=== PATIENT | female | born 2000 | race American Indian/Alaskan Native ===

== ENCOUNTER 2022-03-05 08:56 | Emergency (ER) | payer MEDICAID ==
[2022-03-05 10:57] LABS: Basophils % (Auto) 0.1 % (0.0-1.8); Eosinophils # (Auto) 0.1 K/mm3 (0.0-0.4); Eosinophils % (Auto) 0.7 % (0.0-4.3); Hematocrit 36.3 % (30.3-42.9); Lymphocytes # (Auto) 1.6 K/mm3 (1.2-5.4); Lymphocytes % (Auto) 16.1 % (13.4-35.0); Mean Corpuscular HGB Conc 33 % (30-34); Mean Corpuscular Volume 79 fl (79-97); Monocytes # (Auto) 0.6 K/mm3 (0.0-0.8); Monocytes % (Auto) 6.1 % (0.0-7.3); Platelet Count 400 K/mm3 (140-440); Red Cell Distribution Width 16.9 % (13.2-15.2)
--- NOTE | 2022-03-05 12:51 | Ultrasound Report ---
FIRSTTRIMESTER OBSTETRIC ULTRASOUND HISTORY: Abdominal pain during , vaginal bleeding COMPARISON: None. TECHNIQUE: Routine transabdominal OB ultrasound performed. FINDINGS: Uterus: Mildly enlarged measuring 13.1 x 9.2 x 9.8 cm. Gestational Sac: Well-defined oval shape and intrauterine in location. Yolk Sac: Not seen Fetus/Embryo: Green-rump length of 6.57 cm, corresponding to an estimated gestational age of 12 weeks 6 days. Embryonic/ anatomy is too small for evaluation. Embryonic/ cardiac activity: 153bpm Placenta: Too small for evaluation. Amniotic fluid volume: Subjectively appropriate for gestational age. Ovaries: The right ovary is normal in size and appearance with normal blood flow, measuring 2.5 x 1. 6 x 2.0 cm. The left ovary is normal in size and appearance with normal blood flow, measuring 3.8 x 1.4 x 3.2 cm. Additional findings: Small subchorionic hemorrhages are identified on both sides of the gestational s ac. These measure approximately 5 mm in thickness. IMPRESSION Early live intrauterine . Small subchorionic hemorrhages as described. Signer Name: Marco Mae Jr, MD Signed: 03/05/2022 12:43 PM Workstation Name: [id number]
[2022-03-05 13:20] LABS: Blood Urea Nitrogen 5 mg/dL (7-17); Calcium 9.2 mg/dL (8.4-10.2); Hemolysis Index 0
[2022-03-05 13:21] LABS: BUN/Creatinine Ratio 8
[2022-03-05 14:17] LABS: Bacteria,Urine 1+ /HPF (Negative); Bilirubin,Urine NEG (Negative); Blood,Urine NEG (Negative); Color,Urine Yellow (Yellow); Mucus,Urine FEW /HPF; Protein,Urine <15 mg/dL mg/dL (Negative); WBC,Urine < 1.0 /HPF (0.0-6.0)
--- NOTE | 2022-03-05 14:31 | Emergency Department Report ---
ED HPI - General Chief complaint: Vaginal Bleeding Stated complaint: UNK WRK /BLEEDING Time Seen by Provider: 03/05/22 11:33 Source: patient Mode of arrival: Ambulatory Limitations: No Limitations - History of Present Illness Initial comments: 21 yo black female with no pmh presents to the ed for evaluation abdominal pain and vaginal bleeding. She states that she had a positive tests several weeks ago. She states that pain and bleeding started today, and she denies fever, n/v, dysuria, and dizziness. MD Complaint: abdominal pain, vaginal bleeding -: Sudden, This morning Location: abdomen Radiation: LLQ, RLQ, suprapubic Severity: moderate Severity scale (0 -10): 5 Quality: aching Consistency: intermittent Associated symptoms: vaginal bleeding, abdominal pain. denies: nausea/vomiting, vaginal discharge, dysuria, headache, vision changes, malaise, dysparuenia, rash, seizure, shortness of breath, syncope, weakness Vaginal bleeding: light :: Yes Pre- care: followed by OB - Related Data : 1 Para: 0 Previous Rx's Medication Instructions Recorded Last Taken Type cephALEXin [Keflex] 500 mg PO BID #14 cap 03/05/22 Unknown Rx Allergies Allergy/AdvReac Type Severity Reaction Status Date / Time No Known Allergies Allergy Verified 03/05/22 09:52 ED Review of Systems ROS: Stated complaint: UNK WRK /BLEEDING Other details as noted in HPI Comment: All other systems reviewed and negative Constitutional: denies: chills, fever ENT: denies: congestion Respiratory: denies: shortness of breath Cardiovascular: denies: chest pain, palpitations, dyspnea on exertion, orthopnea, edema, syncope, paroxysmal nocturnal dyspnea Gastrointestinal: abdominal pain. denies: nausea, vomiting, diarrhea, hematemesis, melena, hematochezia Genitourinary: denies: urgency, dysuria, frequency, hematuria, discharge Musculoskeletal: denies: back pain Neurological: denies: headache, weakness ED Past Medical Hx - Social History Smoking Status: Never Smoker Substance Use Type: None - Medications Home Medications: Home Medications Medication Instructions Recorded Confirmed Last Taken Type cephALEXin [Keflex] 500 mg PO BID #14 cap 03/05/22 Unknown Rx ED Physical Exam - General Limitations: No Limitations General appearance: alert, in no apparent distress - Head Head exam: Present: atraumatic, normocephalic - Eye Eye exam: Present: normal appearance. Absent: conjunctival injection - Neck Neck exam: Present: normal inspection, full ROM. Absent: tenderness - Respiratory Respiratory exam: Present: normal lung sounds bilaterally. Absent: respiratory distress, wheezes, rales, rhonchi, stridor, chest wall tenderness - Cardiovascular Cardiovascular Exam: Present: regular rate, normal heart sounds - GI/Abdominal GI/Abdominal exam: Present: soft, normal bowel sounds. Absent: distended, tenderness, guarding, rebound, rigid - Extremities Exam Extremities exam: Present: normal inspection, full ROM, normal capillary refill. Absent: tenderness, pedal edema, joint swelling, calf tenderness - Back Exam Back exam: Present: normal inspection. Absent: CVA tenderness (R), CVA tenderness (L), vertebral tenderness - Neurological Exam Neurological exam: Present: alert, oriented X3 - Psychiatric Psychiatric exam: Present: normal affect, normal mood - Skin Skin exam: Present: warm, dry, intact, normal color ED Course Vital Signs 03/05/22 03/05/22 03/05/22 09:54 11:40 14:54 Temperature 98.8 F 98.8 F 98.2 F Pulse Rate 86 79 97 H Respiratory 16 20 20 Rate Blood Pressure 145/85 124/78 145/97 [Left] O2 Sat by Pulse 100 100 100 Oximetry ED Medical Decision Making - Lab Data Result diagrams: 03/05/22 10:17 03/05/22 10:17 - Radiology Data Radiology results: report reviewed US: FINDINGS: Uterus: Mildly enlarged measuring 13.1 x 9.2 x 9.8 cm. Gestational Sac: Well-defined oval shape and intrauterine in location. Yolk Sac: Not seen Fetus/Embryo: [place]-rump length of 6.57 cm, corresponding to an estimated gestational age of 12 weeks 6 days. Embryonic/ anatomy is too small for evaluation. Embryonic/ cardiac activity: 153bpm Placenta: Too small for evaluation. Amniotic fluid volume: Subjectively appropriate for gestational age. Ovaries: The right ovary is normal in size and appearance with normal blood flow, measuring 2.5 x 1.6 x 2.0 cm. The left ovary is normal in size and appearance with normal blood flow, measuring 3.8 x 1.4 x 3.2 cm. Additional findings: Small subchorionic hemorrhages are identified on both sides of the gestational sac. These measure approximately 5 mm in thickness. IMPRESSION Early live intrauterine . Small subchorionic hemorrhages as described. - Medical Decision Making 21 yo black female with no pmh presents to the ed for evaluation abdominal pain and vaginal bleeding. She states that she had a positive tests several weeks ago. She states that pain and bleeding started today, and she denies fever, n/v, dysuria, and dizziness. No gross abnormalities noted to labs, urine positive for uti, and US positive for IUP at 12 weeks and subchorionic hemorrhage. She will be treated with 7 day coarse of Keflex for UTI and advised to follow up with copier and printer field technician as planned for care. She is advised to return to ed if worsening bleeding or any other concerning symptoms. She verbalized understanding of and agreement with plan of care. Critical care attestation.: If time is entered above; I have spent that time in minutes in the direct care of this critically ill patient, excluding procedure time. ED Disposition Clinical Impression: Subchorionic hematoma Qualifiers: Fetus number: single or unspecified fetus Trimester: first trimester Qualified Code(s): O41.8X10 - Other specified disorders of amniotic fluid and membranes, first trimester, not applicable or unspecified UTI (urinary tract infection) Qualifiers: Urinary tract infection type: acute cystitis Hematuria presence: without hematuria Qualified Code(s): N30.00 - Acute cystitis without hematuria Disposition: 01 HOME / SELF CARE / HOMELESS Is pt being admited?: No Does the pt Need Aspirin: No Condition: Stable Instructions: Antibiotic Medicine, Adult, [id number], Urinary Tract Infection, Adult, [id number], Subchorionic Hematoma Additional Instructions: Take medication as prescribed. Follow-up with RECREATIONAL THERAPIST as planned. Return to the emergency department as needed. Prescriptions: cephALEXin [Keflex] 500 mg PO BID #14 cap Referrals: [facility] [Provider Group] - 3-5 Days Forms: Work/School Release Form(ED) Time of Disposition: 14:30
[2022-03-05 14:55] VITALS: BP 145/97
== END 2022-03-05 14:56 | disposition home or self-care (01) ==
LOC: ED 08:56
DX: O41.8X10 Other specified disorders of amniotic fluid and membranes, first trimester, not applicable or unspecified (principal); O23.41 Unspecified infection of urinary tract in pregnancy, first trimester; N39.0 Urinary tract infection, site not specified; Z3A.12 12 weeks gestation of pregnancy
CPT/HCPCS: 36415; 76801; 80048; 81001; 84702; 85025; 99284

== ENCOUNTER 2022-04-02 14:42 | Emergency (ER) | payer MEDICAID ==
[2022-04-02 17:08] LABS: Bilirubin,Urine NEG (Negative); Blood,Urine NEG (Negative); Color,Urine Yellow (Yellow)
[2022-04-02 17:13] LABS: Calcium Oxalate Crystals,Urine 2+; Mucus,Urine 3+ /HPF
[2022-04-02 22:57] LABS: Blood Urea Nitrogen 3 mg/dL (7-17); Hemolysis Index 0
[2022-04-02 22:58] LABS: BUN/Creatinine Ratio 5
--- NOTE | 2022-04-02 22:59 | Ultrasound Report ---
ULTRASOUND OBSTETRIC INDICATION / CLINICAL INFORMATION: 18 weeks and vaginal bleeding. Clinical Gestational Age (GA) in weeks, days: 16, 3 TECHNIQUE: Transabdominal. COMPARISON: None available. FINDINGS: Single intrauterine . Biparietal Diameter = 3.5 cm = 16, 5 weeks, days Head Circumference = 13.9 cm = 17, 2 weeks, days Abdominal Circumference = 10.7 cm = 16, for weeks, days Femur Length = 2.7 cm = 18, 1 weeks, days Average Ultrasound Age (AUA) = 17, 1 weeks, days Heart Rate: 162 beats per minute. Estimated Weight in grams (if calculated): 189 Estimated Weight Growth Percentile (if calculated): 92 Position: cephalic. Cervix: closed. Length in cm (if measured): 3.3 Placenta: Right fundal and free of the os. Amniotic Fluid Volume: normal Amniotic Fluid Index (NIOL) in cm (if calculated): Not calculated. Maternal Adnexa: No significant abnormality. IMPRESSION: 1. Single, living intrauterine with estimated sonographic age of 16, 3 weeks, days. 2. No significant sonographic abnormality. Signer Name: Harinder Castano DO Signed: 04/02/2022 10:55 PM Workstation Name: [id number]
[2022-04-02 23:01] LABS: Basophils % (Auto) 0.2 % (0.0-1.8); Hematocrit 34.5 % (30.3-42.9); Lymphocytes # (Auto) 0.6 K/mm3 (1.2-5.4); Lymphocytes % (Auto) 8.2 % (13.4-35.0); Mean Corpuscular HGB Conc 32 % (30-34); Mean Corpuscular Volume 79 fl (79-97); Monocytes # (Auto) 1.1 K/mm3 (0.0-0.8); Monocytes % (Auto) 15.5 % (0.0-7.3); Platelet Count 363 K/mm3 (140-440); Red Blood Count 4.34 M/mm3 (3.65-5.03); Red Cell Distribution Width 16.4 % (13.2-15.2)
[2022-04-03 01:23] VITALS: BP 127/76
--- NOTE | 2022-04-03 01:32 | Emergency Department Report ---
ED Female HPI - General Chief complaint: Abdominal Pain Stated complaint: 16WKS /ABD PAIN Time Seen by Provider: 04/02/22 21:57 Source: patient Mode of arrival: Ambulatory Limitations: No Limitations - History of Present Illness Initial comments: 21-year-old vaginal female presents to the emergency department reporting being 6 weeks under the care of [facility] MOTORBOAT MECHANIC INBOARD/OUTBOARD whose last visit was March 15, 2022 and of normal variation. She states has been having some crampy pelvic pain over the last 2 to 3 days with no associated vaginal bleeding or vaginal discharge no dysuria. No fever, chills, sweats. No chest pain palpitations. No nausea, no vomiting, no presyncope MD Complaint: pelvic pain -: Gradual Location: suprapubic Radiation: non-radiating, suprapubic Quality: cramping, dull Consistency: constant Improves with: none Worsens with: none Are you Now?: No - Related Data Sexually active: No Previous Rx's Medication Instructions Recorded Last Taken Type cephALEXin [Keflex] 500 mg PO BID #14 cap 03/05/22 Unknown Rx Allergies Allergy/AdvReac Type Severity Reaction Status Date / Time No Known Allergies Allergy Verified 03/05/22 09:52 ED Review of Systems ROS: Stated complaint: 16WKS /ABD PAIN Other details as noted in HPI Comment: All other systems reviewed and negative ED Past Medical Hx - Social History Smoking Status: Never Smoker Substance Use Type: None - Medications Home Medications: Home Medications Medication Instructions Recorded Confirmed Last Taken Type cephALEXin [Keflex] 500 mg PO BID #14 cap 03/05/22 Unknown Rx ED Physical Exam - General Limitations: No Limitations General appearance: alert, in no apparent distress - Head Head exam: Present: atraumatic, normocephalic - Eye Eye exam: Present: normal appearance, PERRL, EOMI Pupils: Present: normal accommodation - ENT ENT exam: Present: normal exam, normal orophraynx, mucous membranes moist, TM's normal bilaterally - Neck Neck exam: Present: normal inspection, full ROM - Respiratory Respiratory exam: Present: normal lung sounds bilaterally. Absent: respiratory distress - Cardiovascular Cardiovascular Exam: Present: regular rate, normal rhythm. Absent: systolic murmur, diastolic murmur, rubs, gallop - GI/Abdominal GI/Abdominal exam: Present: soft, normal bowel sounds - Extremities Exam Extremities exam: Present: normal inspection - Back Exam Back exam: Present: normal inspection - Neurological Exam Neurological exam: Present: alert, oriented X3 - Psychiatric Psychiatric exam: Present: normal affect, normal mood - Skin Skin exam: Present: warm, dry, intact, normal color. Absent: rash ED Course Vital Signs 04/02/22 15:26 Temperature 98.7 F Pulse Rate 123 H Respiratory 16 Rate Blood Pressure 123/72 O2 Sat by Pulse 99 Oximetry ED Medical Decision Making - Lab Data Result diagrams: 04/02/22 22:16 04/02/22 22:16 Critical care attestation.: If time is entered above; I have spent that time in minutes in the direct care of this critically ill patient, excluding procedure time. ED Disposition Clinical Impression: Discomfort during Disposition: 01 HOME / SELF CARE / HOMELESS Is pt being admited?: No Does the pt Need Aspirin: No Condition: Stable Instructions: Abdominal Pain (ED) Additional Instructions: Seen evaluate emergency department a 4 related pain. The ultrasound showed no abnormal issues with a intrauterine at over 16 weeks with a normal heart rate please be sure to follow-up with your MOTORBOAT MECHANIC INBOARD/OUTBOARD for any further related issues you can utilize Tylenol as needed for your pain. If any other medications please consult with your MOTORBOAT MECHANIC INBOARD/OUTBOARD for more analgesic alternatives. Be sure to stay hydrated and take daily multivitamin. Referrals: [facility] [Provider Group] - 3-5 Days AFUA URBINA MD [Primary Care Provider] - 3-5 Days
== END 2022-04-03 01:23 | disposition home or self-care (01) ==
LOC: ED 14:42
DX: O26.892 Other specified pregnancy related conditions, second trimester (principal); R10.9 Unspecified abdominal pain; Z3A.16 16 weeks gestation of pregnancy
CPT/HCPCS: 36415; 76805; 80048; 81001; 84702; 85025; 99284